=== PATIENT | female | born 1980 | race Caucasian/White ===

== ENCOUNTER 2017-03-09 19:12 | Emergency (ER) | payer MEDICAID ==
[~2017-03-09] VITALS: Ht 157.5 cm; Wt 72.6 kg
[2017-03-09 19:50] LABS: Urine Bilirubin Negative (Negative); Urine Blood Negative /uL (Negative); Urine Color Yellow (Yellow); Urine Ketone TRACE (Negative); Urine Nitrite Negative (Negative); Urine RBC 1 /hpf (0 - 4); Urine Squamous Epithelial Cell FEW /hpf (<5); Urine Urobilinogen Normal (Negative); Urine pH 5.5 (5.0-8.0)
[2017-03-09 19:51] LABS: Urine Glucose 4+ mg/dL (Normal)
[2017-03-09 20:03] LABS: Basophils # (auto) 0.1 uL; Basophils % (auto) 0.6 % (0.0-2.0); Eosinophils # (auto) 0.5 uL; Eosinophils % (auto) 4.5 % (0.0-7.0); Hematocrit 47.9 % (36.0-46.0); Hemoglobin 15.9 g/dL (12.2-16.2); Lymphocytes # (auto) 3.6 uL; Lymphocytes % (auto) 31.4 % (10.0-50.0); Mean Corpuscular Hemoglobin 28.1 pg (28.0-32.0); Mean Corpuscular Hgb Conc. 33.3 g/dL (32.0-36.0); Mean Corpuscular Volume 84.5 fL (80.0-100.0); Monocytes # (auto) 0.9 uL; Monocytes % (auto) 7.8 % (0.0-12.0); Neutrophils # (auto) 6.4 uL; Neutrophils % (auto) 55.7 % (37.0-80.0); Platelet Count (auto) 396 10^3/uL (140-450); Red Cell Distribution Width 14.6 % (11.6-16.0); White Blood Cell 11.5 10^3/uL (4.4-10.8)
[2017-03-09 20:33] LABS: Albumin 3.2 g/dL (3.4-5.0); BUN/Creatinine Ratio 17.5; Bilirubin, Total 0.5 mg/dL (0.2-1.0); Calcium 8.2 mg/dL (8.5-10.1); Potassium 3.9 mmol/L (3.5-5.1); Total Protein 7.5 g/dL (6.4-8.2)
[2017-03-09 22:10] VITALS: BP 140/100
== END 2017-03-10 00:12 | disposition left against medical advice (07) ==
LOC: ER 19:17
DX: R10.9 Unspecified abdominal pain (principal); E11.9 Type 2 diabetes mellitus without complications; I10 Essential (primary) hypertension; Z87.442 Personal history of urinary calculi; K86.1 Other chronic pancreatitis; Z90.49 Acquired absence of other specified parts of digestive tract; Z88.6 Allergy status to analgesic agent; Z53.29 Procedure and treatment not carried out because of patient's decision for other reasons
CPT/HCPCS: 36415; 80053; 81001; 81025; 82150; 83690; 85025

== ENCOUNTER 2017-03-15 11:43 | Inpatient (IN) | payer MEDICAID ==
[~2017-03-15] VITALS: Ht 165.1 cm; Wt 86.8 kg
[2017-03-15] MEDS ORDERED: SODIUM CHLORIDE 0.9% 500 ML IVB ONE (12:09)
[2017-03-15] MEDS ORDERED: PANTOPRAZOLE SODIUM 40 MG/10 ML VIAL IV STA (12:09)
[2017-03-15] MEDS ORDERED: ONDANSETRON HCL 4 MG/2 ML VIAL IV ONE (12:15)
[2017-03-15] MEDS ORDERED: HYDROmorphone HCL 2 MG/ML VL IV ONE ×2 (12:15→18:30)
[2017-03-15 12:31] LABS: Basophils # (auto) 0.1 uL; Basophils % (auto) 0.7 % (0.0-2.0); CONDITION AutoValidated; Eosinophils # (auto) 0.5 uL; Eosinophils % (auto) 4.3 % (0.0-7.0); Hematocrit 44.1 % (36.0-46.0); Hemoglobin 15.1 g/dL (12.2-16.2); Lymphocytes # (auto) 2.5 uL; Mean Corpuscular Hemoglobin 28.7 pg (28.0-32.0); Mean Corpuscular Hgb Conc. 34.3 g/dL (32.0-36.0); Mean Corpuscular Volume 83.6 fL (80.0-100.0); Mean Platelet Volume 10.1 fL (7.4-10.4); Monocytes # (auto) 0.6 uL; Monocytes % (auto) 5.3 % (0.0-12.0); Neutrophils # (auto) 7.8 uL; Neutrophils % (auto) 67.7 % (37.0-80.0); Platelet Count (auto) 379 10^3/uL (140-450); Red Cell Distribution Width 14.1 % (11.6-16.0); White Blood Cell 11.5 10^3/uL (4.4-10.8)
[2017-03-15 12:48] LABS: Albumin 2.9 g/dL (3.4-5.0); Bilirubin, Total 0.6 mg/dL (0.2-1.0); Calcium 7.4 mg/dL (8.5-10.1)
[2017-03-15 12:53] LABS: BUN/Creatinine Ratio 22.7
[2017-03-15 12:54] LABS: Total Protein 6.9 g/dL (6.4-8.2)
[2017-03-15] MEDS ORDERED: DEXTROSE (50%) 50ML SYRG IV PRN (18:30)
[2017-03-15] MEDS ORDERED: ACETAMINOPHEN 325 MG TAB PO PRN (18:45)
[2017-03-15] MEDS ORDERED: cloNIDine HCL 0.1 MG TAB PO PRN (18:45)
[2017-03-15] MEDS ORDERED: NITROGLYCERIN 0.4 MG SL TAB SL PRN (18:45)
[2017-03-15] MEDS ORDERED: MORPHINE SULF INJ 2 MG/ML SYRINGE 1ML IV PRN (18:45)
[2017-03-15] MEDS ORDERED: DOCUSATE SOD 100 MG CAP PO PRN (18:45)
[2017-03-15] MEDS ORDERED: TEMAZEPAM 15 MG CAP PO PRN (18:45)
[2017-03-15] MEDS: MULTIPLE VITAMIN TAB PO SCH (19:03)
[2017-03-15] MEDS: SODIUM CHLORIDE 0.9% 1,000 ML IV SCH (19:03)
[2017-03-15] MEDS: ONDANSETRON HCL 4 MG/2 ML VIAL IV PRN ×2 (19:04→23:14)
[2017-03-15 20:00] VITALS: BP 119/79
[2017-03-15 22:00] VITALS: BP 119/79
[2017-03-15] MEDS: Boost Glucose Control 8 Ounces PO SCH (22:00)
[2017-03-15] MEDS: ACCU-CHEK COMFORT CURVE STRIP VI SCH (22:00)
[2017-03-15] MEDS: InsuLIN REG 1unit/0.01ml Soln (100units/ml) SC SCH (22:00)
[2017-03-15] MEDS: HYDROmorphone HCL 2 MG/ML VL IV PRN (23:07)
[2017-03-15] MEDS: GEMFIBROZIL 600 MG TAB PO SCH (23:07)
[2017-03-15] MEDS: FAMOTIDINE 20 MG TAB PO SCH (23:07)
[2017-03-16] MEDS: SODIUM CHLORIDE 0.9% 1,000 ML IV SCH ×3 (01:24→21:01)
[2017-03-16] MEDS: ONDANSETRON HCL 4 MG/2 ML VIAL IV PRN (04:32)
[2017-03-16] MEDS: HYDROmorphone HCL 2 MG/ML VL IV PRN (04:32)
[2017-03-16 05:00] VITALS: BP 114/79
[2017-03-16] MEDS ORDERED: LISI2.5T47 PO (05:25)
[2017-03-16] MEDS ORDERED: METF-370 PO (05:25)
[2017-03-16] MEDS ORDERED: GEMF600T3 PO (05:26)
[2017-03-16] MEDS ORDERED: TRAM50TA2 PO (05:28)
[2017-03-16 06:38] LABS: Basophils # (auto) 0.1 uL; Basophils % (auto) 0.4 % (0.0-2.0); CONDITION AutoValidated; Eosinophils # (auto) 0.3 uL; Hematocrit 40.8 % (36.0-46.0); Hemoglobin 13.5 g/dL (12.2-16.2); Lymphocytes # (auto) 2.1 uL; Lymphocytes % (auto) 13.2 % (10.0-50.0); Mean Corpuscular Hgb Conc. 33.2 g/dL (32.0-36.0); Mean Corpuscular Volume 84.4 fL (80.0-100.0); Mean Platelet Volume 10.3 fL (7.4-10.4); Monocytes # (auto) 0.6 uL; Monocytes % (auto) 3.7 % (0.0-12.0); Neutrophils # (auto) 12.8 uL; Neutrophils % (auto) 80.7 % (37.0-80.0); Platelet Count (auto) 334 10^3/uL (140-450); Red Cell Distribution Width 14.5 % (11.6-16.0); White Blood Cell 15.8 10^3/uL (4.4-10.8)
[2017-03-16 07:09] LABS: Albumin 2.5 g/dL (3.4-5.0); Bilirubin, Total 0.8 mg/dL (0.2-1.0); Calcium 7.5 mg/dL (8.5-10.1); Potassium 3.8 mmol/L (3.5-5.1); Total Protein 5.9 g/dL (6.4-8.2)
[2017-03-16 07:37] LABS: Amylase 120 U/L (25-115)
[2017-03-16 09:00] VITALS: BP 97/66
[2017-03-16] MEDS: LISINOPRIL 5 MG TAB PO SCH (10:00)
[2017-03-16] MEDS: GEMFIBROZIL 600 MG TAB PO SCH ×2 (10:04→22:31)
[2017-03-16] MEDS: MULTIPLE VITAMIN TAB PO SCH (10:04)
[2017-03-16] MEDS: FAMOTIDINE 20 MG TAB PO SCH ×2 (10:04→22:30)
[2017-03-16] MEDS: ACCU-CHEK COMFORT CURVE STRIP VI SCH ×3 (11:50→22:43)
[2017-03-16] MEDS: Boost Glucose Control 8 Ounces PO SCH ×3 (12:19→22:31)
[2017-03-16] MEDS: InsuLIN REG 1unit/0.01ml Soln (100units/ml) SC SCH ×3 (12:19→22:46)
[2017-03-16 13:00] VITALS: BP 115/83
[2017-03-16 17:00] VITALS: BP 116/76
[2017-03-16 22:00] VITALS: BP 130/96
[2017-03-16] MEDS: traMADol HCL 50 MG TAB PO PRN (22:30)
[2017-03-17] MEDS: traMADol HCL 50 MG TAB PO PRN (03:50)
[2017-03-17] MEDS: SODIUM CHLORIDE 0.9% 1,000 ML IV SCH ×4 (03:52→21:19)
[2017-03-17 05:05] VITALS: BP 121/77
[2017-03-17 06:28] LABS: Basophils # (auto) 0.1 uL; Basophils % (auto) 0.7 % (0.0-2.0); CONDITION Y; Eosinophils # (auto) 0.5 uL; Eosinophils % (auto) 5.8 % (0.0-7.0); Hematocrit 37.9 % (36.0-46.0); Hemoglobin 12.6 g/dL (12.2-16.2); Lymphocytes # (auto) 2.4 uL; Lymphocytes % (auto) 26.3 % (10.0-50.0); Mean Corpuscular Hemoglobin 28.1 pg (28.0-32.0); Mean Corpuscular Hgb Conc. 33.2 g/dL (32.0-36.0); Mean Corpuscular Volume 84.6 fL (80.0-100.0); Mean Platelet Volume 10.3 fL (7.4-10.4); Monocytes # (auto) 0.7 uL; Monocytes % (auto) 8.1 % (0.0-12.0); Neutrophils # (auto) 5.3 uL; Neutrophils % (auto) 59.1 % (37.0-80.0); Platelet Count (auto) 331 10^3/uL (140-450); Red Cell Distribution Width 14.9 % (11.6-16.0); White Blood Cell 8.9 10^3/uL (4.4-10.8)
[2017-03-17] MEDS: ACCU-CHEK COMFORT CURVE STRIP VI SCH ×4 (06:40→21:37)
[2017-03-17] MEDS: Boost Glucose Control 8 Ounces PO SCH ×4 (06:40→21:19)
[2017-03-17] MEDS: InsuLIN REG 1unit/0.01ml Soln (100units/ml) SC SCH ×4 (06:40→21:37)
[2017-03-17 06:53] LABS: Albumin 2.4 g/dL (3.4-5.0); BUN/Creatinine Ratio 11.1; Bilirubin, Total 0.8 mg/dL (0.2-1.0); Calcium 7.6 mg/dL (8.5-10.1); Potassium 3.8 mmol/L (3.5-5.1); Total Protein 5.6 g/dL (6.4-8.2)
[2017-03-17 08:00] VITALS: BP 118/60
[2017-03-17] MEDS: GEMFIBROZIL 600 MG TAB PO SCH ×2 (09:40→21:36)
[2017-03-17] MEDS: MULTIPLE VITAMIN TAB PO SCH (09:40)
[2017-03-17] MEDS: LISINOPRIL 5 MG TAB PO SCH (09:41)
[2017-03-17] MEDS: FAMOTIDINE 20 MG TAB PO SCH ×2 (09:41→21:36)
[2017-03-17 17:00] VITALS: BP 128/60
[2017-03-17 22:00] VITALS: BP_SYST 113; BP_SYST 116; BP_DIAS 63; BP_DIAS 69
[2017-03-18] MEDS: SODIUM CHLORIDE 0.9% 1,000 ML IV SCH (04:52)
[2017-03-18 05:38] VITALS: BP 105/64
[2017-03-18] MEDS: Boost Glucose Control 8 Ounces PO SCH ×2 (06:06→12:00)
[2017-03-18] MEDS: ACCU-CHEK COMFORT CURVE STRIP VI SCH ×2 (06:31→11:30)
[2017-03-18] MEDS: InsuLIN REG 1unit/0.01ml Soln (100units/ml) SC SCH ×2 (06:31→11:30)
[2017-03-18 07:28] LABS: Albumin 2.5 g/dL (3.4-5.0); Anion Gap 8 (5-15); Blood Urea Nitrogen 9 mg/dL (7-18); Calcium 8.1 mg/dL (8.5-10.1); Carbon Dioxide 28 mmol/L (21-32); Chloride 108 mmol/L (98-107); Glucose 181 mg/dL (74-106); Potassium 3.8 mmol/L (3.5-5.1); Sodium 144 mmol/L (136-145)
[2017-03-18 07:29] LABS: Aspartate Aminotransferase < 3 U/L (15-37); GFR African American 180 mL/min; GFR Non-African American 148 mL/min
[2017-03-18 07:32] LABS: Alkaline Phosphatase 119 U/L (45-117); Bilirubin, Total 0.6 mg/dL (0.2-1.0); Total Protein 6.2 g/dL (6.4-8.2)
[2017-03-18 08:00] VITALS: BP 112/65
[2017-03-18] MEDS: MULTIPLE VITAMIN TAB PO SCH (09:43)
[2017-03-18] MEDS: FAMOTIDINE 20 MG TAB PO SCH (09:44)
[2017-03-18] MEDS: LISINOPRIL 5 MG TAB PO SCH (09:50)
[2017-03-18] MEDS: GEMFIBROZIL 600 MG TAB PO SCH (09:50)
[2017-03-18 12:26] VITALS: BP 124/87
[2017-03-18 13:00] VITALS: BP 96/65
== END 2017-03-18 13:06 | disposition home or self-care (01) | DRG 282 ==
LOC: EDBD 11:43 → ER 11:54 → TELE 11:55 → TELE-WESTW 19:25 → WEST WING 03-16 01:33
PROVIDERS: ADMIT Internal Medicine; ATTEND Internal Medicine
DX: K85.90 Acute pancreatitis without necrosis or infection, unspecified (principal); E43 Unspecified severe protein-calorie malnutrition; E83.51 Hypocalcemia; I10 Essential (primary) hypertension; F17.210 Nicotine dependence, cigarettes, uncomplicated; E66.01 Morbid (severe) obesity due to excess calories; E11.9 Type 2 diabetes mellitus without complications; E78.5 Hyperlipidemia, unspecified; E87.1 Hypo-osmolality and hyponatremia; Z90.49 Acquired absence of other specified parts of digestive tract; Z90.89 Acquired absence of other organs; Z87.442 Personal history of urinary calculi; Z98.51 Tubal ligation status; Z88.5 Allergy status to narcotic agent; Z83.3 Family history of diabetes mellitus; Z68.31 Body mass index [BMI] 31.0-31.9, adult; Z71.89 Other specified counseling
CPT/HCPCS: 36415; 80053; 82150; 82962; 83036; 83690; 85025; 94761; 96361; 96374; 96375; 96376; C9113; J1815; J2405

== ENCOUNTER 2017-03-21 22:07 | Emergency (ER) | payer MEDICAID ==
[~2017-03-21] VITALS: Ht 157.5 cm; Wt 72.6 kg
[~2017-03-21 22:07] MED LIST: GEMF600T3 PO; LISI2.5T47 PO; METF-370 PO; TRAM50TA2 PO
[2017-03-22] MEDS ORDERED: SODIUM CHLORIDE 0.9% 1,000 ML IV ONE (03:45)
[2017-03-22] MEDS ORDERED: ONDANSETRON HCL 4 MG/2 ML VIAL IV ONE (03:45)
[2017-03-22 04:16] LABS: Urine Bilirubin Negative (Negative); Urine Color Yellow (Yellow); Urine Ketone TRACE (Negative); Urine Mucus FEW (None Seen); Urine Nitrite Negative (Negative); Urine RBC 3 /hpf (0 - 4); Urine Squamous Epithelial Cell MOD /hpf (<5)
[2017-03-22 04:20] LABS: CONDITION Y; Hematocrit 45.5 % (36.0-46.0); Hemoglobin 15.1 g/dL (12.2-16.2); Mean Corpuscular Hgb Conc. 33.2 g/dL (32.0-36.0); Mean Corpuscular Volume 84.3 fL (80.0-100.0); Platelet Count (auto) 458 10^3/uL (140-450); Red Cell Distribution Width 14.4 % (11.6-16.0); SUSPECT SEE PRINTOUT; White Blood Cell 12.4 10^3/uL (4.4-10.8)
[2017-03-22 04:24] LABS: Metamyelocytes % 0; Myelocytes % 0; Promyelocytes % 0; Reactive Lymphocytes 0
[2017-03-22 04:48] LABS: Calcium 8.8 mg/dL (8.5-10.1); Potassium 4.3 mmol/L (3.5-5.1)
[2017-03-22 04:51] LABS: Albumin 3.5 g/dL (3.4-5.0); BUN/Creatinine Ratio 15.4
[2017-03-22 04:54] LABS: Bilirubin, Total 0.8 mg/dL (0.2-1.0); Total Protein 8.5 g/dL (6.4-8.2)
[2017-03-22 04:55] LABS: Urine Blood 3+ /uL (Negative); Urine Glucose 2+ mg/dL (Normal)
[2017-03-22] MEDS ORDERED: ACETAMINOPHEN 325 MG TAB PO ONE (05:15)
[2017-03-22 05:28] LABS: Platelet Estimate Increased; RBC Morphology Normal
[2017-03-22] MEDS ORDERED: HYDROmorphone HCL 2 MG/ML VL IV ONE (05:30)
[2017-03-22 06:49] VITALS: BP 120/79
== END 2017-03-22 06:49 | disposition home or self-care (01) ==
LOC: EDBD 22:07 → ER 22:15
DX: K29.00 Acute gastritis without bleeding (principal); E11.9 Type 2 diabetes mellitus without complications; I10 Essential (primary) hypertension; Z88.5 Allergy status to narcotic agent; Z79.899 Other long term (current) drug therapy; Z90.49 Acquired absence of other specified parts of digestive tract; Z98.51 Tubal ligation status
CPT/HCPCS: 36415; 80053; 80307; 81001; 82150; 83690; 85007; 85027; 96361; 96374; 96375; 99284; J1170; J2405